=== PATIENT | female | born 1970 | race Caucasian/White ===

== ENCOUNTER 2024-05-23 02:32 | Inpatient (IN) | payer BC ==
[~2024-05-23] VITALS: Ht 154.9 cm; Wt 70.9 kg
[2024-05-23] VITALS (14 sets, daily range): BP systolic 85–98; BP diastolic 49–67; PULSE 62–111; RESP 14–18; TEMP 97.3–98.4; O2SAT 95–98
[2024-05-23] MEDS: acetaminophen 325mg tablet PO ONE (03:19)
[2024-05-23] MEDS ORDERED: NO HOME MEDS (03:41)
[2024-05-23] MEDS ORDERED: mag hydrox/Alum hydrox/simeth 30ml oral suspension PO PRN (04:05)
[2024-05-23] MEDS ORDERED: ondansetron/PF 4mg/2ml inj IV PRN (04:05)
[2024-05-23] MEDS ORDERED: acetaminophen 325mg tablet PO PRN (04:05)
[2024-05-23] MEDS ORDERED: magnesium hydroxide 30ml (MOM) UD suspension PO PRN (04:05)
[2024-05-23] MEDS ORDERED: potassium Cl 40MEQ/1/2NS 520ml 520 ML IV PRN (04:05)
[2024-05-23] MEDS ORDERED: magnesium 4gm in 100ml NS 100 ML IV PRN (04:05)
[2024-05-23] MEDS ORDERED: potassium Cl 20 mEq SR tablet PO PRN ×2 (04:05)
[2024-05-23] MEDS ORDERED: magnesium 2GM in 50ml NS 50 ML IV PRN (04:05)
[2024-05-23] MEDS ORDERED: magnesium Cl slow-release 64mg tablet PO PRN (04:05)
[2024-05-23] MEDS: azithromycin/NS 500mg/250ml 250 ML IV SCH (06:57)
[2024-05-23] MEDS: normal saline 1000ml 1,000 ML IV SCH (06:57)
[2024-05-23] MEDS: ipratropium/albuterol 3ml nebule NEB SCH (07:26)
[2024-05-23 07:27] LABS: BASOPHILS % (AUTO) 0.2 % (0-1); EOSINOPHILS % (AUTO) 0.1 % (0-6); HEMATOCRIT 32.3 % (35.0-45.0); HEMOGLOBIN 10.7 g/dl (12.0-16.0); LYMPHOCYTES # (AUTO) 1.3 X10'3 (1.1-4.8); LYMPHOCYTES % (AUTO) 9.2 % (21-51); MEAN CORPUSCULAR HEMOGLOBIN 29.5 PG (27.0-31.0); MEAN CORPUSCULAR HGB CONC 33.2 g/dL (33.0-36.5); MEAN CORPUSCULAR VOLUME 88.8 FL (78-98); MEAN PLATELET VOLUME 8.4 FL (7.4-10.4); NEUTROPHILS # (AUTO) 11.5 X10'3 (1.8-7.7); NEUTROPHILS % (AUTO) 83.5 % (42-75); PLATELET COUNT 227 X10'3 (140-440); RED BLOOD COUNT 3.64 X10'6 (4.20-5.60); RED CELL DISTRIBUTION WIDTH 13.5 % (11.5-14.5); WHITE BLOOD COUNT 13.8 X10'3 (4.5-11.0)
[2024-05-23 07:38] LABS: PROTHROMBIN TIME 10.3 SECONDS (9.0-12.0)
[2024-05-23 07:40] LABS: ALANINE AMINOTRANSFERASE 46 U/L (12-78); ALBUMIN 2.2 G/DL (3.4-5.0); ALBUMIN/GLOBULIN RATIO 0.6 (1.1-1.5); ALKALINE PHOSPHATASE 61 IU/L (46-116); ANION GAP 10 (8-16); ASPARTATE AMINO TRANSFERASE 27 U/L (10-37); BILIRUBIN,TOTAL 0.4 MG/DL (0.1-1.0); BLOOD UREA NITROGEN 14 MG/DL (7-18); BUN/CREATININE RATIO 17.7 (10.0-20.0); CALCIUM 8.3 MG/DL (8.5-10.1); CHLORIDE 105 MMOL/L (99-107); CREATININE 0.79 MG/DL (0.40-0.90); GLUCOSE 95 MG/DL (70-104); POTASSIUM 3.7 MMOL/L (3.5-5.1); SODIUM 137 MMOL/L (135-145); TOTAL CARBON DIOXIDE 22.5 MMOL/L (24-32); TOTAL PROTEIN 6.1 G/DL (6.4-8.2); eCRCL 65 ML/MIN; eGFR 76 ML/MIN
[2024-05-23 07:43] LABS: MAGNESIUM 1.9 MG/DL (1.5-2.4); PHOSPHORUS 2.9 MG/DL (2.3-4.5)
[2024-05-23] MEDS: K and/or MAG REPLACEMENT MC SCH (08:00)
[2024-05-23] MEDS ORDERED: predniSONE 20 mg tablet PO SCH (08:00)
[2024-05-23] MEDS: CefTRIAXone/D5W-Rocephin 1gm 50 ML IV SCH (10:04)
[2024-05-23] MEDS: methylPREDNISolone sod succ/PF 40mg inj. IV SCH (10:04)
[2024-05-23] MEDS: heparin, porcine 5000 units/ml vial SQ SCH (10:05)
[2024-05-23] MEDS: docusate sod 100mg capsule PO SCH (10:05)
[2024-05-23] MEDS: guaiFENesin ER 600mg tablet PO SCH (20:50)
[2024-05-24 06:00] VITALS: BP 105/65; PULSE 89; RESP 16; TEMP 97.8; O2SAT 94
[2024-05-24 06:49] LABS: BASOPHILS % (AUTO) 0.3 % (0-1); EOSINOPHILS % (AUTO) 0.2 % (0-6); HEMATOCRIT 31.1 % (35.0-45.0); HEMOGLOBIN 10.5 g/dl (12.0-16.0); LYMPHOCYTES # (AUTO) 1.4 X10'3 (1.1-4.8); LYMPHOCYTES % (AUTO) 13.7 % (21-51); MEAN CORPUSCULAR HGB CONC 33.7 g/dL (33.0-36.5); MEAN CORPUSCULAR VOLUME 88.9 FL (78-98); MEAN PLATELET VOLUME 8.8 FL (7.4-10.4); MONOCYTES # (AUTO) 0.6 X10'3 (0-0.9); MONOCYTES % (AUTO) 6.1 % (2-12); NEUTROPHILS # (AUTO) 8.1 X10'3 (1.8-7.7); NEUTROPHILS % (AUTO) 79.7 % (42-75); PLATELET COUNT 255 X10'3 (140-440); RED BLOOD COUNT 3.49 X10'6 (4.20-5.60); RED CELL DISTRIBUTION WIDTH 14.1 % (11.5-14.5); WHITE BLOOD COUNT 10.2 X10'3 (4.5-11.0)
[2024-05-24 07:00] LABS: ALANINE AMINOTRANSFERASE 60 U/L (12-78); ALBUMIN 2.1 G/DL (3.4-5.0); ALBUMIN/GLOBULIN RATIO 0.5 (1.1-1.5); ALKALINE PHOSPHATASE 64 IU/L (46-116); ANION GAP 7 (8-16); ASPARTATE AMINO TRANSFERASE 46 U/L (10-37); BILIRUBIN,TOTAL 0.2 MG/DL (0.1-1.0); BLOOD UREA NITROGEN 9 MG/DL (7-18); BUN/CREATININE RATIO 14.8 (10.0-20.0); CALCIUM 8.7 MG/DL (8.5-10.1); CHLORIDE 109 MMOL/L (99-107); CREATININE 0.61 MG/DL (0.40-0.90); GLUCOSE 119 MG/DL (70-104); POTASSIUM 3.6 MMOL/L (3.5-5.1); SODIUM 142 MMOL/L (135-145); TOTAL CARBON DIOXIDE 26.3 MMOL/L (24-32); TOTAL PROTEIN 6.1 G/DL (6.4-8.2); eCRCL 80 ML/MIN; eGFR > 90 ML/MIN
[2024-05-24 07:17] VITALS: PULSE 78; RESP 16; O2SAT 96
[2024-05-24 07:25] VITALS: PULSE 109; RESP 18
[2024-05-24 09:51] VITALS: BP 107/64; PULSE 106; RESP 16; TEMP 97.8; O2SAT 95
[2024-05-24] MEDS ORDERED: LEVO750T68 PO (11:08)
== END 2024-05-24 11:55 | disposition home or self-care (01) | DRG 189 ==
LOC: EDBD 02:33 → ER 02:33 → ED HOLD 04:14 → ORTHO 4S 07:54
PROVIDERS: ADMIT Surgery Surgical Critical Care; ATTEND Internal Medicine
DX: J96.01 Acute respiratory failure with hypoxia (principal); J18.9 Pneumonia, unspecified organism; K86.1 Other chronic pancreatitis; J45.909 Unspecified asthma, uncomplicated; Z90.49 Acquired absence of other specified parts of digestive tract; Z98.891 History of uterine scar from previous surgery; Z98.51 Tubal ligation status; Z88.1 Allergy status to other antibiotic agents; Z88.0 Allergy status to penicillin
CPT/HCPCS: 36415; 80053; 83605; 83735; 84100; 84145; 84484; 85025; 85610; 87040; 87070; 87081; 93005; 94640; 94760; G0378; J0456; J0696; J1644; J2919; J7030